=== PATIENT | female | born 1960 | race Caucasian/White ===

== ENCOUNTER → 2019-09-29 | Outpatient (CLI) | payer BC ==
[~2019-09-29] MED LIST: ASPIRIN E.C. 8181 MG PO; BUSPAR10 MG; CALCIUM 600/VIT1 CAP PO; DUAVEE; GLUCOSAMINE 1000 PO; MOBIC15 MG PO; MULTIPLE VITAMI1 CAP PO; NEURONTIN100 MG/CAP PO; TYLENOL 325MG325 MG PO
== END ==
LOC: COL.VAS 09-22 13:30
DX: R20.9 Unspecified disturbances of skin sensation (principal)